=== PATIENT | male | born 1950 | race Caucasian/White ===

== ENCOUNTER 2017-02-16 07:48 | Emergency (ER) | payer MEDICARE, OTHER ==
[~2017-02-16] VITALS: Ht 182.9 cm; Wt 112.0 kg
--- NOTE | ~2017-02-16 | CT52 ---
[facility] A Service of [facility] RADIOLOGY TEXT RESULTS PATIENT: MARILY KAISER LOCATION: [facility] : 50 UNIT #: [id number] AGE: [address]: Katie Barrow MD SEX: M ORDER DR: [id number] [place] [id number] [facility]. [place], [place] [address] [id number] E MR#: [id number] #: [id number] NAME: MARILY KAISER : 1950 SEX: M STUDY DATE/TIME: 02/16/2017 8:50 UNIT: [facility] ROOM: STUDY DESCRIPTION: CT Cervical Spine Wo Cont Attending Physician: Katie Barrow M.D. Ordering Physician: Katie Barrow M.D. Primary Care Physician: Elisha Robbins M.D. MEDICAL IMAGING REPORT This report is preliminary unless electronic signature is present EXAM CT scan of the cervical spine without contrast INDICATION Fall today at custodial with scalp hematoma and neck pain since fall. TECHNIQUE Axial 2 mm images were obtained through the cervical spine. Sagittal and coronal reconstructions were generated. This CT examination was performed with one or more of the following radiation dose reduction techniques: automatic exposure control, adjustment of mA and/or kV according to patient size, and iterative reconstruction. FINDINGS The alignment is normal. There are marked facet degenerative changes, particularly on the right at L3-4 and L4-5. There is no fracture or subluxation. IMPRESSION Degenerative changes in the upper cervical spine. No evidence of acute injury. Dictated by... Jair Eaton M.D. THIS IS AN ELECTRONICALLY VERIFIED REPORT Jair Eaton M.D. at 02/16/2017 1:25 PM MILI/kathy [facility] A Service [facility] RADIOLOGY TEXT RESULTS PATIENT: MARILY KAISER LOCATION: [facility] : 50 UNIT #: [id number] AGE: [address]: Katie Barrow MD SEX: M ORDER DR: TD: 02/16/2017 09:46 JOB #: [id number] MEDICAL IMAGING REPORT Page 1 of 1 COPY
--- NOTE | ~2017-02-16 | CT71 ---
[facility] A Service of [facility] RADIOLOGY TEXT RESULTS PATIENT: MARILY KAISER LOCATION: [facility] : 50 UNIT #: [id number] AGE: [address]: Katie Barrow MD SEX: M ORDER DR: [id number] [facility] [address] [place], [place] [address] [id number] E MR#: [id number] Acc #: [id number] NAME: MARILY KAISER : 1950 SEX: M STUDY DATE/TIME: 02/16/2017 8:52 UNIT: [facility] ROOM: STUDY DESCRIPTION: CT Head Wo Contrast Attending Physician: Katie Barrow M.D. Ordering Physician: Katie Barrow M.D. Primary Care Physician: Elisha Robbins M.D. MEDICAL IMAGING REPORT This report is preliminary unless electronic signature is present EXAM CT head HISTORY Fell today at senior care; scalp hematoma, left frontal hematoma, left frontal pain, neck pain times today. FINDINGS CT head performed skull base through vertex without intravenous contrast. Study degraded by motion artifact despite repetition of some images. This CT exam was performed with one or more of the following radiation dose reduction techniques: Automatic exposure control, adjustment of mA and/or kV according to patient size, and iterative reconstruction. Comparison 06/22/2016. The brainstem shows no gross acute abnormality. The cerebellum and cerebral hemispheres show overall preservation of mejia matter-white matter differentiation without clear indication of acute intracranial hemorrhage or acute cortical ischemia. Subtle areas of hemorrhage or acute ischemia could be obscured by motion/streak artifact. The midline structures are nondisplaced and the basal ganglia are intact. The ventricles, cisterns and sulci show mild generalized enlargement consistent with mild generalized atrophy. There is no intra- or extraaxial mass effect or abnormal intracranial fluid collection. The intraorbital soft tissues are unremarkable. Cutaneous irregularity anterior right paracentral superficial nasal soft tissues. Chronicity unclear. Correlate with any acute small laceration to this region. Old, healed left nasal bone fracture. No acute appearing fracture. Mucosal thickening bilateral mastoid air cells. Similar appearance on prior study. Near-complete opacification of the right maxillary sinus. Mucosal thickening in ethmoid air cells. Cavernous carotid arterial calcifications. Soft tissue swelling left frontal scalp measuring about 3.1 cm in diameter by about 7 mm in thickness. Soft tissue swelling in the left temporal scalp STS. [facility] A Service of [facility] & [facility] RADIOLOGY TEXT RESULTS PATIENT: MARILY KAISER LOCATION: [facility] : 50 UNIT #: [id number] AGE: [address]: PushpaSeptember Carlos DAVID SEX: M ORDER DR: measuring about 5 cm in diameter by 9 mm in thickness. There is some milder soft tissue swelling in the left posterior parietal scalp. No soft tissue defect, subcutaneous air or radiodense foreign body. IMPRESSION 1. No acute abnormality is seen in the brain. Study significantly degraded by motion artifact, despite repetition of images. 2. Chronic changes in brain include mild generalized atrophy, vascular calcifications. 3. No fracture. 4. Areas of soft tissue swelling/contusion left frontal scalp measuring about 3.1 cm x 7 mm and left temporal scalp measuring about 5 cm x 9 mm. Milder posterior superior parietal soft tissue scalp swelling. No soft tissue defect. 5. Old, healed left nasal bone fracture. 6. Cutaneous irregularity along the right paracentral aspect of the superficial nasal soft tissues. Chronicity unclear. Please correlate with any acute laceration at this location. 7. Near-complete opacification of the right maxillary sinus. 8. Mucosal thickening in mastoid air cells bilaterally similar to June 2016. Correlate with any clinical signs or symptoms of mastoid inflammation. Dictated by... González Choi M.D. THIS IS AN ELECTRONICALLY VERIFIED REPORT González Choi M.D. at 02/20/2017 8:01 AM ALFREDITO/barbara TD: 02/16/2017 10:13 JOB #: [id number] MEDICAL IMAGING REPORT Page 1 of 1 COPY
--- NOTE | ~2017-02-16 | CR206 ---
[facility] A Service of [facility] RADIOLOGY TEXT RESULTS PATIENT: MARILY KAISER LOCATION: [facility] : 50 UNIT #: [id number] AGE: [address]: Katie Barrow MD SEX: M ORDER DR: [id number] [facility] [address] [place], [place] [address] [id number] E MR#: [id number] Acc #: [id number] NAME: MARILY KAISER : 1950 SEX: M STUDY DATE/TIME: 02/16/2017 8:13 UNIT: [facility] ROOM: STUDY DESCRIPTION: CR Pelvis 1 or 2 Views Attending Physician: Katie Barrow M.D. Ordering Physician: Katie Barrow M.D. Primary Care Physician: Elisha Robbins M.D. MEDICAL IMAGING REPORT This report is preliminary unless electronic signature is present EXAM Pelvis, 02/16/2017 HISTORY Unable to follow instructions, difficult to move, unable give history, short of air, hip pain 1 day. Fall. FINDINGS AP radiographs of the pelvis are presented. A AP radiograph of the femur is included. The study is somewhat limited by patient's large body habitus. Clothing and external monitoring equipment artifact overlie relevant anatomy. The lower lumbar spine shows degenerative change but no gross acute abnormality. The bony ring of pelvis appears intact. The visualized right femur is intact with mild degenerative change in the right hip. Patient is status post left femoral neck fracture with subsequent open reduction internal fixation with long intramedullary gama, distal transverse fixation screw and dynamic screw in the left femoral head and neck. 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 This is unchanged from a CT examination dated 05/19/2016. Correlate with patient's clinical history. There is no compelling evidence of acute fracture. The orthopedic hardware itself appears radiographically intact. The periarticular soft tissues show no definite acute abnormality. The visualized bowel gas pattern is within normal limits. Dictated by... González Choi M.D. THIS IS AN ELECTRONICALLY VERIFIED REPORT González Choi M.D. at 02/20/2017 8:01 AM ALFREDITO/tiara TD: 02/16/2017 09:32 JOB #: [id number] [facility] A Service of [facility] & [facility] RADIOLOGY TEXT RESULTS PATIENT: MARILY KAISER LOCATION: [facility] : 50 UNIT #: [id number] AGE: [address]: Katie Barrow MD SEX: M ORDER DR: MEDICAL IMAGING REPORT Page 1 of 1 COPY
--- NOTE | ~2017-02-16 | CR72 ---
[facility] A Service of [facility] RADIOLOGY TEXT RESULTS PATIENT: MARILY KAISER LOCATION: [facility] : 50 UNIT #: [id number] AGE: [address]: Katie Barrow MD SEX: M ORDER DR: [id number] [facility] [address] [place], [place] [address] [id number] P MR#: [id number] Acc #: [id number] NAME: MARILY KAISER : 1950 SEX: M STUDY DATE/TIME: 02/16/2017 8:10 UNIT: [facility] ROOM: STUDY DESCRIPTION: CR Chest Single View Portable Attending Physician: Katie Barrow M.D. Ordering Physician: Katie Barrow M.D. Primary Care Physician: Elisha Robbins M.D. MEDICAL IMAGING REPORT This report is preliminary unless electronic signature is present EXAM Portable chest x-ray, 02/16/2017 HISTORY Fall. Dementia. COPD. FINDINGS AP radiograph of the chest is presented. Comparison 06/23/2016. The patient's chin overlies the lung apices and obscures some detail. No acute bony abnormality is suggested. Heart normal in size. Chronic elevation right hemidiaphragm. Stable. Some minimal patchy and linear densities at the bilateral lung bases favored to be atelectatic in nature. Basilar pneumonitis not entirely excluded but felt less likely. There is no dense air space disease, pleural effusion or pneumothorax. No suspicious nodule. Dictated by... González Choi M.D. THIS IS AN ELECTRONICALLY VERIFIED REPORT González Choi M.D. at 02/20/2017 8:01 AM ALFREDITO/tiara TD: 02/16/2017 09:13 JOB #: [id number] MEDICAL IMAGING REPORT Page 1 of 1 COPY
[~2017-02-16 07:48] MED LIST: ACETAMINOOPHEN-1 TAB PO; ACETAMINOPHEN PO; ACETAMINOPHEN500 M2 PO; ADVAIR; ADVAIR 250-501 EAC1 IH; ALBUTEROL0.83 MG/ML IH; ALBUTEROL17 GM INH; ALBUTEROL17 GM NEB; AMBIEN PO; ARTANE PO; ASPIRIN81 MG PO; ATIVAN PO; ATIVAN0.5 M1 PO; ATIVAN0.5 MG PO; AUGMENTIN PO; AUGMENTIN875 M1 PO; BENZTROPINE MESY2 MG PO; COGENTIN1 M1 PO; COLACE PO; COMBIVENT MININEB INH; DARVOCET-N 1001 TAB PO; FLEXERIL PO; FLEXERIL10 MG PO; FLOMAX0.4 M1 PO; FLORANEX T1 TAB.CHE3 PO; FUROSEMIDE40 MG PO; GABAPENTIN300 MG PO; GABAPENTIN600 MG PO; GABAPENTIN800 MG PO; HALDOL PO; HUMIBID DM1 CAP.SR . PO; HUMIBID L.1 TAB.SR . PO; HUMIBID-LA600 MG PO; IPRAT-ALBUT 0.5-3 ML INH; K-DUR20 ME2 PO; KCL PO; KEFLEX PO; LASIX PO; LASIX20 MG PO; LEVAQUIN PO; LEVOTHYROXINE25 MCG PO; LOPRESSOR PO; LORATADINE PO; LORTAB 7.5-3251 EACH PO; MAPAP500 MG PO; MELATONIN10 M1 PO; METOPROLOL TAR25 MG PO; MUCINEX D ER T1 EAC1 PO; NEURONTIN PO; NEURONTIN600 MG PO; OMEPRAZOLE20 M2 PO; ORUDIS75 M1 DOB; OXYGEN INH; PERCOCET5/325 PO; PERFOROMIS20 MCG/2 M IH; POTASSIUM CHLO20 ME1 PO; PREDNISONE PO; PREDNISONE10 MG PO; PREDNISONE2.5 MG PO; PRILOSEC PO; PRIMIDONE250 MG PO; PROAIR; PROVENTIL INH0.5 ML HHN; PULMICORT0.5 MG/2 M IH; SAPHRIS5 MG SL; SEROQUEL PO; SEROQUEL XR200 MG PO; SPIRIVA18 MCG INH; STOOL SOFTENER250 MG PO; SYMBICORT INH; SYNTHROID PO; TESSALON200 MG PO; TRAMADOL HCL50 M2 PO; TRIHEXYPHENIDYL2 MG PO; ULTRAM PO; VIBRAMYCIN100 M1 PO; VIT B-12 PO; VITAL-D RX TABL1 TAB PO; VITAMIN B-121000 MCG PO; VITAMIN D31000 UNI1 PO; ZYLOPRIM PO; ZYLOPRIM100 MG PO
[2017-02-16 09:23] LABS: BASOPHIL% 0.4 % (0-2.5); EOSINOPHIL# 0.2 X10e3 (0-0.7); HEMATOCRIT 40.4 % (38.0-50.0); HEMOGLOBIN 13.7 gm/dL (13.0-16.0); LYMPHOCYTE# 1.3 X10e3 (1.0-3.5); LYMPHOCYTE% 16.1 % (17.0-45.0); MEAN CELL VOLUME 94.8 FL (83-96); MEAN CORPUSCULAR HGB CONC 33.8 g/dL (30-36); MONOCYTE# 1.2 X10e3 (0-1.0); MONOCYTE% 15.5 % (3.0-12.0); NEUTROPHIL# 5.3 X10e3 (1.5-7.1); PLATELET COUNT 170 X10e3 (140-420); RED BLOOD COUNT 4.27 X10e (3.90-5.60); RED CELL DISTRIBUTION WIDTH 16.3 % (11.0-15.5)
[2017-02-16 09:24] LABS: DIFF IND NO
[2017-02-16 09:51] LABS: PARTIAL THROMBOPLASTIN TIME 29.5 SECONDS (23.5-31.3); PROTHROMBIN TIME (PATIENT) 10.8 SECONDS (10.0-11.7)
[2017-02-16 09:52] LABS: CALCIUM SERUM 8.3 mg/dL (8.4-10.2); CREATININE SERUM 0.7 mg/dL (0.6-1.4); GLOM FILT RATE Estimated 98.4 mL/min (>60); POTASSIUM 3.5 mmol/L (3.5-5.1)
== END 2017-02-16 11:11 | disposition home or self-care (01) ==
LOC: CED 07:48
PROVIDERS: Student in an Organized Health Care Education/Training Program
DX: S00.83XA Contusion of other part of head, initial encounter (principal); I50.9 Heart failure, unspecified; J44.9 Chronic obstructive pulmonary disease, unspecified; Z79.82 Long term (current) use of aspirin; Z79.899 Other long term (current) drug therapy; W19.XXXA Unspecified fall, initial encounter; Y92.129 Unspecified place in nursing home as the place of occurrence of the external cause
CPT/HCPCS: 36415; 70450; 71010; 72125; 72170; 80048; 85025; 85610; 85730; 99284

== ENCOUNTER 2017-02-27 04:46 | Inpatient (IN) | payer MEDICARE, OTHER ==
--- NOTE | ~2017-02-27 | CR72 ---
[facility] A Service of [facility] & [facility] RADIOLOGY TEXT RESULTS PATIENT: MARILY KAISER LOCATION: [place] [address] : 50 UNIT #: [id number] AGE: [address]: Leslie Hendricks MD SEX: M ORDER DR: [id number] [facility] [address] [place], [place] [address] [id number] I MR#: [id number] Acc #: [id number] NAME: MARILY KAISER : 1950 SEX: M STUDY DATE/TIME: 02/27/2017 UNIT: [facility] ROOM: [facility] STUDY DESCRIPTION: CR Chest Single View Portable Attending Physician: Leslie Hendricks M.D. Ordering Physician: González Canales M.D. Primary Care Physician: Elisha Robbins M.D. MEDICAL IMAGING REPORT This report is preliminary unless electronic signature is present PXAM portable chest 02/27 05:09 INDICATIONS Shortness of air. Patient found unresponsive at group home this morning. FINDINGS AP portable chest is compared with 02/16/2017. ET tube is in the mid trachea in good position. There is atelectasis in both lung bases. There is emphysema. There is no pneumothorax. IMPRESSION Well-positioned ET tube. Emphysema with bibasilar atelectasis. No pneumothorax. Dictated by... Benny Gaines Jr., M.D. THIS IS AN ELECTRONICALLY VERIFIED REPORT Benny Gaines Jr., M.D. at 02/27/2017 9:21 PM ANISHA/chalo TD: 02/27/2017 14:59 JOB #: [id number] MEDICAL IMAGING REPORT Page 1 of 1 COPY
--- NOTE | ~2017-02-27 | CR72 ---
[facility] A Service of [facility] & [facility] RADIOLOGY TEXT RESULTS PATIENT: MARILY KAISER [address]ATION: [address] : [birth year] UNIT #: [id number] AGE: [address]: Soo Magaña MD SEX: M ORDER DR: [id number] [facility] [address] [place], [place] [address] [id number] I MR#: [id number] Acc #: [id number] NAME: MARILY KAISER : 1950 SEX: M STUDY DATE/TIME: 02/27/2017 14:40 UNIT: [facility] ROOM: [facility] STUDY DESCRIPTION: CR Chest Single View Portable Attending Physician: Leslie Hendricks M.D. Ordering Physician: Geoffrey Olson M.D. Primary Care Physician: Elisha Robbins M.D. MEDICAL IMAGING REPORT This report is preliminary unless electronic signature is present EXAM AP portable chest DATE: 02/27/2017 at 14:40 HISTORY Dobbhoff placement. Intubated. Additional history of COPD, congestive heart failure, previous myocardial infarction COMPARISON AP portable chest 02/27/2017 at 08:56. FINDINGS Dobbhoff tube radiopaque tip projects over the lower mediastinum presumably within the lower thoracic esophagus. ET tube remains satisfactorily positioned in the mid-thoracic trachea, with the tip about 4.5 cm above the amy. Right IJ central line extends to the [id number] SVC level. There is band-like opacity within the lung bases thought to represent changes of atelectasis, similar to prior. Upper lung zones appear clear. Bilateral costophrenic angles not included in the field of view. No visible pneumothorax. IMPRESSION 1. Dobbhoff tube radiopaque tip projects over the region of the lower thoracic esophagus. 2. Right IJ central line, ET tube appear unchanged. 3. Bibasilar band-like densities favored to represent atelectasis unchanged from earlier today. Dictated by... Alejandra Cruz M.D. THIS IS AN ELECTRONICALLY VERIFIED REPORT [facility] A Service of [facility] & [facility] RADIOLOGY TEXT RESULTS PATIENT: MARILY KAISER [address]ATION: [address] : [birth year] UNIT #: [id number] AGE: [address]: Soo Magaña MD SEX: M ORDER DR: Alejandra Cruz M.D. at 03/02/2017 8:34 AM LINA/jamal TD: 02/28/2017 04:47 JOB #: [id number] MEDICAL IMAGING REPORT Page 1 of 1 COPY
--- NOTE | ~2017-02-27 | US84 ---
[id number] [facility] [address] [place], [place] [address] [id number] I MR#: [id number] Acc #: [id number] NAME: MARILY KAISER : 1950 SEX: M STUDY DATE/TIME: 02/27/2017 21:09 UNIT: [facility] ROOM: [facility] STUDY DESCRIPTION: US LE Veins Complete Isiah Stdy Attending Physician: Soo Magaña M.D. Ordering Physician: Geoffrey Olson M.D. Primary Care Physician: Elisha Robbins M.D. MEDICAL IMAGING REPORT This report is preliminary unless electronic signature is present EXAM Bilateral lower extremity venous ultrasound HISTORY Lower extremity edema for 1 day. TECHNIQUE Venous ultrasound examination of both lower extremities was performed using grayscale, spectral Doppler and color flow Doppler imaging. FINDINGS The examination is negative. There is no evidence of deep venous thrombus from the groin to the lower calf bilaterally. Visualized greater saphenous veins are also patent. IMPRESSION Negative examination. No evidence of bilateral lower extremity deep venous thrombosis. Dictated by... Grady Aj M.D. THIS IS AN ELECTRONICALLY VERIFIED REPORT Grady Aj M.D. at 02/28/2017 11:51 PM Reji TD: 02/28/2017 11:32 JOB #: [id number] MEDICAL IMAGING REPORT Page 1 of 1 COPY
--- NOTE | ~2017-02-27 | CO ---
Unit #: [id number] #: [id number] Patient: MARILY KAISER [id number] [address] [place], [place] [address] [id number] I MR#: [id number] NAME: MARILY KAISER ROOM: [facility] Age: 66 Sex: M Admission Date: 02/27/2017 : 1950 Attending Physician: Leslie Hendricks M.D. Primary Care Physician: Elisha Robbins M.D. Consultation Date: 02/27/2017 CONSULTATION REPORT REASON FOR CONSULTATION Respiratory failure. HISTORY OF PRESENT ILLNESS History is gathered from the EHR and chart. The patient is intubated cannot add to the history. EMS was called and he was "found down." He ultimately was intubated. Unfortunately, no other history can be obtained. He apparently was found down by the nursing staff as he resides at a fpc. PAST MEDICAL HISTORY Remarkable for schizophrenia, mild mental retardation, COPD, chronic respiratory failure, diastolic heart failure, peripheral neuropathy, hypertension, chronic back pain, gastroesophageal reflux, gout. MEDICATIONS According to the EHR are Synthroid, metolazone, Flomax, Zestril, aspirin, Plavix, Zyloprim, Dilantin, Lasix, a variety of nebulized bronchodilators, Saphris, Neurontin, Cogentin, metoprolol, Zocor, Desyrel, Zantac, Seroquel, Ultram, and lorazepam. ALLERGIES No known medical allergies. SOCIAL HISTORY Lives at a fpc. Does not smoke or drink. FAMILY HISTORY Unobtainable. REVIEW OF SYSTEMS Unobtainable. PHYSICAL EXAMINATION GENERAL: Reveals a patient, who is orally intubated, sedated. VITAL SIGNS: Afebrile, pulse 89, respiratory rate is 20, blood pressure 114/72, he is 6 feet tall, 242, BMI is 33. HEENT: Pupils are equal, round, and reactive to light. Sclerae anicteric. Head, atraumatic. NECK: Supple. No supraclavicular or cervical adenopathy appreciated. CHEST: Equal breath sounds, clear, short expiratory phase. Ventilator loops revealed no evidence of airflow obstruction. CARDIAC: Reveals regular rate and rhythm. No pathologic murmur, rub, or gallop. Unit #: [id number] #: [id number] Patient: MARILY KAISER ABDOMEN: Soft and nontender. No hepatomegaly or rebound. EXTREMITIES: Reveal no clubbing or cyanosis. There is massive edema. No calf tenderness. SKIN: Has a variety of excoriations, delayed capillary blush, it is cool. No diaphoresis. NEUROLOGICALLY: Deeply sedated, cannot cooperate with the full exam. DIAGNOSTIC STUDIES LABORATORY RESULTS: Arterial blood gas; pH is 7.27, pCO2 of 85, PO2 of 481. Repeat pH is 7.36, pCO2 of 67, PO2 of 189 on assist control of 20, tidal volume is 600, 60%, 5 of PEEP. BUN 30, creatinine is 1.2, potassium 3.4. BNP has not been checked. Lactic acid less than 1. INR normal. Initial cardiac enzymes negative. White blood cell count 13, hemoglobin 14.3, and platelet count 191. Urinalysis unremarkable. Blood cultures performed and are pending. No sputum has been collected, but was grown MSSA and strep pneumococcus in the past. IMAGING STUDIES: Chest x-ray, fairly unremarkable. Could have some linear atelectasis versus infiltrate at the bases. CARDIOVASCULAR STUDIES: EKG, sinus rhythm, no definite acute ischemic changes. IMPRESSION 1. Respiratory failure, acute on chronic. At this point, the etiology of his respiratory failure is somewhat obscure. Consider over medication, occult pneumonia, etc. At this point, there was no evidence of significant airflow obstruction. 2. Chronic obstructive pulmonary disease without bronchospasm. 3. Diastolic heart failure. 4. Schizophrenia, etc. PLAN Mechanical ventilatory support. Continue antibiotics for now. Check tox screen. Check procalcitonin and BNP. Rule out PE and DVT. Panculture and adjust antibiotics as appropriate. Thank you very much for allowing me to participate in the care of Mr. Vergara. Dictated by... Geoffrey Olson M.D. JUANITO/anthony TD: 02/27/2017 14:45 JOB #: [id number] CC: Elisha Robbins M.D. Unit #: [id number] #: [id number] Patient: MARILY KAISER CONSULTATION REPORT Page 1 of 1 X Geoffrey Olson MD CONSULTATION REPORT
--- NOTE | ~2017-02-27 | HP ---
Unit #: [id number] #: [id number] Patient: MARILY KAISER [id number] [address] [place], [place] [address] [id number] I MR#: [id number] NAME: MARILY KAISER ROOM: 91270 Age: 66 Sex: M Admission Date: 02/27/2017 : 1950 Attending Physician: Leslie Hendricks M.D. Primary Care Physician: Elisha Robbins M.D. HISTORY AND PHYSICAL CHIEF COMPLAINT Found unresponsive on floor. HPI The patient is a 66-year-old male with past medical history of chronic respiratory failure, COPD, diastolic dysfunction, nonsustained ventricular tachycardia, schizophrenia, mental retardation, neuropathy, BPH, chronic pain, hearing impairment, GERD, gout, who presented to the emergency department from the longterm for evaluation of the above. History is obtained from chart review and discussion with ER staff due to the patient currently being intubated and sedated. The patient was reportedly found down by longterm staff. It is unclear when he was last normal. Upon EMS arrival, he was in the bed, lethargic and then reportedly combative. He was given etomidate and intubated prior to arrival. Upon arrival in the emergency department, initial temperature was 96.1 rectally, pulse 84, blood pressure 81/61. CT of the head shows nothing acute. Chest x-ray shows nothing acute. Initial lactic acid was 2.1. He was given 1 L of normal saline as well as vancomycin and Zosyn. He also was started on versed drip for sedation and Levophed drip due to hypotension. A central line has been placed. He is being admitted to [facility] for evaluation and further treatment. PAST MEDICAL HISTORY 1. Admission to [facility] May 29 through the 2015 for fever. Per the discharge summary, no source of infection was identified. 2. Schizophrenia. 3. Mild mental retardation. 4. COPD. The patient has seen chest medicine in the past. 5. Chronic respiratory failure, on home oxygen. 6. Diastolic dysfunction. The patient had an echocardiogram in October of 2014 that showed an ejection fraction of 50% with dilated right ventricle. 7. Nonsustained ventricular tachycardia. 8. Peripheral neuropathy. 9. BPH. 10. Hypertension. 11. Chronic back pain. 12. Hearing impairment. 13. GERD. 14. Gout. Unit #: [id number] #: [id number] Patient: MARILY KAISER PAST SURGICAL HISTORY 1. Cardiac catheterization in 2002 showed luminal irregularities of the LAD. 2. Appendectomy. 3. Umbilical hernia repair. 4. Incision and drainage of left wrist abscess. SOCIAL HISTORY The patient is at a longterm. He is a former smoker. There is no alcohol. His code status is a Full Code. FAMILY HISTORY Notable for lung cancer. ALLERGIES No known allergies. HOME MEDICATIONS 1. Synthroid. 2. Metolazone. 3. Flomax. 4. Zestril. 5. Aspirin. 6. Clopidogrel. 7. Zyloprim. 8. Vitamin D. 9. Vitamin B12. 10. Phenytoin. 11. Ipratropium. 12. Albuterol. 13. Furosemide. 14. Pulmicort. 15. Potassium. 16. Saphris. 17. Neurontin. 18. Cogentin. 19. Metoprolol. 20. Stool softener. 21. Zocor. 22. Desyrel. 23. Zantac. 24. Seroquel. 25. Ultram. 26. Albuterol. 27. Tylenol. 28. Lorazepam. Home medications will need to be reviewed and verified. REVIEW OF SYSTEMS A complete review of systems is unobtainable form the patient due to sedation and altered mental status. DIAGNOSTIC TESTS CARDIOVASCULAR: EKG shows normal sinus rhythm with rate of 91 beats per minute. Unit #: [id number] #: [id number] Patient: MARILY KAISER IMAGING: Chest x-ray shows nothing acute. CT of the head shows nothing acute. LABORATORY: Arterial blood gas shows pH of 7.272, pCO2 of 85, pO2 of 481 on assist control with an FIO2 of 100%. Troponin is less than 0.05. Complete blood count notable for white blood cell count of 13.1, lactic acid 2.1, ammonia is 32. Comprehensive metabolic panel notable for sodium of 132, potassium is 3.4, chloride 88, CO2 35. BUN and creatinine 30 and 1.2 respectively. Calcium is 8.1, albumin 3.4, alkaline phosphatase 94. Dilantin level is less than 2.5. Tylenol, salicylate and alcohol levels are negative. INR is 1. Urinalysis is essentially normal. CPK is 41. PHYSICAL EXAMINATION VITAL SIGNS: Temperature is 96.1 rectally, pulse 84, respirations 16, blood pressure 81/61, most recently 101/77. GENERAL: The patient is a male who is intubated and sedated. HEENT: The head is atraumatic. Mucous membranes are moist. NECK: Supple. Trachea is midline. CARDIOVASCULAR: Regular rate and rhythm. LUNGS: Clear to auscultation bilaterally. ABDOMEN: Soft. Bowel sounds are present in all 4 quadrants. EXTREMITIES: There is 2-3+ pitting edema of bilateral lower extremities. NEURO: The patient is sedated on versed drip. He was initially moving all extremities per my discussion with ER staff. PSYCH: Unable to assess. SKIN: Demonstrates scattered bruises of the upper extremities in various stages of healing. ASSESSMENT The patient is a 66-year-old male with: 1. Altered mental status. 2. Acute on chronic respiratory failure, hypoxic and hypercapnic. 3. Possible septic shock. The patient received 1 L of normal saline in the emergency department. He is currently on Levophed drip with most recent blood pressure 107/83. 4. Possible healthcare-associated pneumonia. Chest x-ray is clear. He received vancomycin and Zosyn in the emergency department. 5. Hypokalemia with potassium of 3.4. 6. COPD. 7. Diastolic dysfunction with ejection fraction of 50% noted on echocardiogram October 23, 2014. 8. History of nonsustained ventricular tachycardia. 9. Schizophrenia. 10. Mild mental retardation. 11. Neuropathy. 12. BPH. Unit #: [id number] #: [id number] Patient: MARILY KAISER 13. Chronic back pain. 14. Hearing impaired. 15. GERD. 16. Gout. 17. Former smoker. PLAN 1. Admit to ICU. 2. NPO. 3. Versed drip per sedation protocol. 4. Levophed drip for MAP greater than 65. 5. Blood cultures x2. 6. Sputum culture and sensitivity. 7. Procalcitonin level. 8. Streptococcal and legionella urine antigens. 9. Vancomycin IV and Zosyn IV pending further workup. 10. Duo-Nebs q.4 hours. 11. Sepsis protocol. 12. Consult chest medicine regarding ICU admission and vent management. 13. Serial cardiac enzymes. 14. TSH, B12 and folate. 15. Check magnesium level. 16. Replace potassium. 17. Repeat labs in the morning. 18. Repeat chest x-ray in the morning. 19. SCDs for DVT prophylaxis. 20. Protonix for GI prophylaxis since the patient will be in the ICU. 32 minutes critical care time spent in the care of this patient (11 a.m. to 11:32 a.m.). Dictated by Leslie Hendricks M.D. DEVI/denia TD: 02/27/2017 12:45 JOB #: [id number] HISTORY AND PHYSICAL Page 1 of 1 X Leslie Hendricks MD X HISTORY AND PHYSICAL
--- NOTE | ~2017-02-27 | CT16 ---
[facility] A Service of [facility] & [facility] RADIOLOGY TEXT RESULTS PATIENT: MARILY KAISER LOCATION: [facility] 579-01 : 50 UNIT #: [id number] AGE: [address]: Soo Magaña MD SEX: M ORDER DR: [id number] [facility] [address] [facility]. [place], [place] [address] [id number] I MR#: [id number] #: [id number] NAME: MARILY KAISER : 1950 SEX: M STUDY DATE/TIME: 02/27/2017 20:35 UNIT: [facility] ROOM: [facility] STUDY DESCRIPTION: CT Angio Chest for PE Attending Physician: Soo Magaña M.D. Ordering Physician: Geoffrey Olson M.D. Primary Care Physician: Elisha Robbins M.D. MEDICAL IMAGING REPORT This report is preliminary unless electronic signature is present EXAM CT angiography of the chest with IV contrast, PE protocol COMPARISON CT chest dated May 13, 2016, May 08, 2016, April 16, 2015, December 27, 2014. INDICATION 66-year-old male found down on the floor at shelter today. Acute respiratory distress and respiratory failure requiring intubation. Ventilatory support today. Dyspnea. TECHNIQUE Axial CT imaging of the chest was performed after IV administration of 100 mg Isovue-370. Coronal MIPs and sagittal reformats were constructed. This CT exam was performed with one or more of the following radiation dose reduction techniques: automatic exposure control, adjustment of mA and/or kV according to patient size, and iterative reconstruction. FINDINGS There is adequate position of endotracheal tube. Feeding tube tip terminates in the gastric fundus. There is questionable fracture of the ninth left lateral rib that, if real, is nondisplaced. This is incompletely imaged. Right internal jugular catheter terminates in the SVC. Mild bilateral gynecomastia. Normal caliber of the thoracic aorta. The main pulmonary artery and ascending aorta are limited in evaluation due to pulsation artifact. There is actually mild dilatation of the main pulmonary artery measuring up to 3.2 cm, a finding that may reflect pulmonary arterial hypertension. There are grossly stable prominent mediastinal lymph nodes, the largest of which measures up to 9 mm short axis. These are likely reactive. No evidence of pulmonary embolus. There is enhancing dependent attenuation in the right lower lobe and, to a STS. [facility] A Service of [facility] RADIOLOGY TEXT RESULTS PATIENT: MARILY KAISER LOCATION: [facility] 579-01 : 50 UNIT #: [id number] AGE: [address]: Soo Magaña MD SEX: M ORDER DR: lesser extent, in the left lower lobe suggesting atelectasis. There is trace right pleural effusion. There is volume loss in the right middle lobe with plate-like enhancing attenuation, most consistent with atelectasis. No evidence of pneumothorax. Mild to moderate centrilobular paraseptal emphysema. Detailed evaluation of the lungs is limited in part by motion. Mild cardiomegaly. There is fluid distention of the gallbladder which is otherwise unremarkable. There is marked fatty atrophy of the pancreas. Large colonic stool burden within the transverse colon. In the posterior right kidney, there is an exophytic hypoattenuating lesion measuring 1.4 cm that appears to have been present on May 19, 2016, most consistent with either a cyst or angiomyolipoma at that time, given the negative average internal Hounsfield units. Current exam is limited by streak artifact from the patient's arms at the side, and apparent increased attenuation in this lesion on today's exam is most likely artifactual. Lesion is stable in size from May 19, 2016. As compared to CT of January 16, 2015, there appears to be stable height loss of the T11 and T12 vertebral bodies. No convincing evidence of acute fracture, although evaluation of bones again is limited by streak artifact from the patient's arms by his side. IMPRESSION 1. No evidence of pulmonary embolus. 2. Trace right pleural effusion with dependent enhancing attenuation in both lower lobes favoring atelectasis. Correlation to exclude signs of pneumonia recommended. There is also plate-like atelectasis in the right middle lobe. There is a background of emphysema, and there is grossly stable mild mediastinal adenopathy, as compared January 16, 2017, likely reactive. 3. Possible nondisplaced single left lateral rib fracture, as described in the body of the report. This is not imaged in entirety, and the finding could reflect an artifact. 4. Fluid distension of the gallbladder without secondary findings of acute cholecystitis. 5. Adequate position of endotracheal tube. Feeding tube tip terminates in the gastric fundus. 6. Severe fatty replacement of the pancreas. 7. 1.4-cm lesion in the right kidney which is stable from most recent comparison CT abdomen and pelvis dated May 19, 2016. This has not changed in size, and in 2016, without IV contrast and with adequate technique, this was most consistent with a cyst or possibly a benign angiomyolipoma. Current apparent increased density is favored to be secondary to streak artifact from the patient's arms by his side. Findings would seem most in keeping with a benign right renal lesion. Consider CT followup as clinically indicated. [facility] A Service of [facility] RADIOLOGY TEXT RESULTS PATIENT: MARILY KAISER LOCATION: [place] [address] : 50 UNIT #: [id number] AGE: [address]: Soo Magaña MD SEX: M ORDER DR: Dictated by... Ford Powell M.D. THIS IS AN ELECTRONICALLY VERIFIED REPORT Ford Powell M.D. at 03/06/2017 9:45 AM Shekhar TD: 02/28/2017 10:56 JOB #: [id number] MEDICAL IMAGING REPORT Page 1 of 1 COPY
--- NOTE | ~2017-02-27 | CT71 ---
[facility] A Service of [facility] RADIOLOGY TEXT RESULTS PATIENT: MARILY KAISER LOCATION: [address]08 : 50 UNIT #: [id number] AGE: [address]: Leslie Hendricks MD SEX: M ORDER DR: [id number] [place] [id number] [facility]. [place], [place] [address] [id number] I MR#: [id number] Acc #: [id number] NAME: MARILY KAISER : 1950 SEX: M STUDY DATE/TIME: 02/27/2017 9:19 UNIT: [facility]3 ROOM: [facility] STUDY DESCRIPTION: CT Head Wo Contrast Attending Physician: Leslie Hendricks M.D. Ordering Physician: González Canales M.D. Primary Care Physician: Elisha Robbins M.D. MEDICAL IMAGING REPORT This report is preliminary unless electronic signature is present EXAM Noncontrast head CT. HISTORY Found unresponsive on floor this morning, intubated respiratory distress. History of emphysema, prior ID. COMPARISON Head CT, 02/16/2017. TECHNIQUE This CT exam was performed with one or more of the following radiation dose reduction techniques: automatic exposure control, adjustment of mA and/or kV according to patient size, and iterative reconstruction. FINDINGS Axial noncontrast imaging of the brain demonstrates no mass, mass effect or midline shift. No hemorrhage or abnormal extraaxial fluid collections. Mild atrophy. Bilateral ethmoid and right maxillary sinus disease. Calvarial soft tissues unremarkable. Resolution of the previously noted scalp hematoma. IMPRESSION 1. No acute intracranial abnormality identified. 2. Diffuse ethmoid and right maxillary sinus mucosal disease. 3. Resolution of apparent scalp contusion or hematomas when compared to head CT 02/16/2017. Dictated by... Kasandra Low M.D. THIS IS AN ELECTRONICALLY VERIFIED REPORT [facility] A Service of [facility] RADIOLOGY TEXT RESULTS PATIENT: MARILY KAISER LOCATION: [address] : 50 UNIT #: [id number] AGE: [address]: Leslie Hendricks MD SEX: M ORDER DR: Kasandra Low M.D. at 02/27/2017 5:07 PM Hoa TD: 02/27/2017 16:50 JOB #: [id number] MEDICAL IMAGING REPORT Page 1 of 1 COPY
--- NOTE | ~2017-02-27 | EKG ---
PATIENT: MARILY KAISER UNIT #: [id number] Ventricular Rate: 91 BPM Atrial Rate: 91 BPM P-R Interval: 150 ms QRS Duration: 98 ms Q-T Interval: 380 ms QTC Calculation(Bezet): 467 ms P [place]: 67 degrees Calculated R [place]: 10 degrees Calculated T [place]: 65 degrees Diagnosis Line: Normal sinus rhythm Diagnosis Line: Incomplete right bundle branch block Diagnosis Line: Septal infarct , age undetermined Diagnosis Line: Abnormal ECG Diagnosis Line: When compared with ECG of 27-FEB-2017 05:06, Diagnosis Line: (unconfirmed) Diagnosis Line: Fusion complexes are no longer Present Diagnosis Line: Confirmed by NATE CALVILLO MD ([id number]) on Diagnosis Line: 02/27/2017 2:11:21 PM INTERPRETING MD: RAJINDER DAVID
--- NOTE | ~2017-02-27 | DS ---
Unit #: [id number] #: [id number] Patient: MARILY KAISER [id number] [address] [place], [place] [address] [id number] I MR#: [id number] NAME: MARILY KAISER ROOM: 579 Age: 66 Sex: M Admission Date: 02/27/2017 : 1950 Discharge Date: 03/03/2017 Attending Physician: Soo Magaña M.D. Primary Care Physician: Elisha Robbins M.D. DISCHARGE SUMMARY CHIEF COMPLAINT Found unresponsive. HISTORY OF PRESENT ILLNESS/HOSPITAL COURSE Patient is a 66-year-old male with a past medical history of chronic respiratory failure, end stage COPD, diastolic dysfunction, seizure disorder, MRDD neuropathy, schizophrenia, and a termite technician resident of local fpc who presented after staff found him down. EMS services were called and patient was lethargic, reportedly combative. He was appropriately sedated, intubated, and subsequently transferred to [facility] for further evaluation. Patient was placed in the ICU. A consultation was placed to [facility] for evaluation as they had seen the patient in the past. He was maintained on routine medications. He was gradually weaned from a ventilator. He was placed on IV antibiotics and consideration for possible aspiration. He was transitioned out of ICU into O2 via nasal cannula. He appears to be close to baseline in regards to his overall mental status. He did undergo a CT chest, which raised the possibility of atelectasis versus pneumonia. At the time of discharge, she will ge transitioning to p.o. Augmentin for an additional ten days. His blood cultures from this hospital admission does not yield any bacterial growth. His hemoglobin A1c was 5.5%. At the time of discharge the patient's creatinine was 0.5, white count 6.7, hemoglobin 12.2. Secondary to bilateral lower extremity edema, the patient did undergo an ultrasound of the lower extremities, which was negative for acute DVT. At this point time, patient is clinically stable for discharge back to the [facility]. It seems likely he may have had a seizure , which prompted decreased mental status. FINAL DISCHARGE DIAGNOSES 1. Altered mental status, questionable etiology. 2. Acute on chronic respiratory failure, hypoxic/hypercapnic on admission, now improved. Unit #: [id number] #: [id number] Patient: MARILY KAISER 3. Initial septic shock now improved. Present on admission 4. Healthcare acquired pneumonia versus aspiration pneumonia. 5. Chronic obstructive pulmonary disease, end stage. 6. Diastolic dysfunction with previous ejection fraction 50% noted on echocardiogram 10/2014. 7. Prior history of nonsustained ventricular tachycardia. 8. Schizophrenia. 9. Mental retardation and developmental disabilities. 10. Neuropathy. 11. Benign prostatic hypertrophy. 12. Hearing impaired. 13. Gastroesophageal reflux disease. FINAL DISCHARGE MEDICATIONS 1. DuoNeb aerosol solution q.6 hours scheduled. 2. Pulmicort b.i.d. 3. Flomax 0.4 mg p.o. q.day. 4. Tylenol 500 mg p.o. q.4-6 p.r.n. 5. Risperdal 2 mg p.o. b.i.d. 6. Lopressor 25 mg p.o. b.i.d. 7. Colace 200 mg p.o. q.day. 8. Lasix 40 mg p.o. q.day. 9. Zocor 20 mg p.o. q.h.s. 10. Dilantin 100 mg p.o. q.8. 11. Allopurinol 100 mg p.o. q.day. 12. Aspirin 81 mg p.o. q.day. 13. Augmentin 875 mg p.o. b.i.d. x10 days. 14. Plavix 75 mg p.o. q.day. 15. Klor-Con 20 mEq p.o. q.day. 16. Protonix 40 mg p.o. q.day. 17. Synthroid 25 mcg p.o. q.day. 18. Vitamin B12 1,000 mcg p.o. q.day. 19. Vitamin D 1,000 units p.o. q.day. 20. Saphris 10 mg sublingual b.i.d. DISCHARGE CONDITION Stable. DISCHARGE DISPOSITION [facility] for ongoing care. Dictated by... Maria Esther Sparks TD: 03/03/2017 12:22 JOB #: [id number] Unit #: [id number] #: [id number] Patient: MARILY KAISER R DISCHARGE SUMMARY Page 1 of 1 X Soo Magaña MD X DISCHARGE SUMMARY
--- NOTE | ~2017-02-27 | CR72 ---
[facility] A Service of [facility] & [facility] RADIOLOGY TEXT RESULTS PATIENT: MAIRLY KAISER LOCATION: [place] [address] : 50 UNIT #: [id number] AGE: [address]: Soo Magaña MD SEX: M ORDER DR: [id number] [facility] [address]. [place], [place] [address] [id number] I MR#: [id number] Acc #: [id number] NAME: MARILY KAISER : 1950 SEX: M STUDY DATE/TIME: 03/02/2017 04:09 UNIT: [facility] ROOM: [facility] STUDY DESCRIPTION: CR Chest Single View Portable Attending Physician: Soo Magaña M.D. Ordering Physician: Matt Gutierrez M.D. Primary Care Physician: Elisha Robbins M.D. MEDICAL IMAGING REPORT This report is preliminary unless electronic signature is present EXAM Portable chest, 03/02 at 04:09 INDICATIONS Shortness of air and respiratory failure for 12 days. FINDINGS AP portable chest is compared with 02/28/2017. Right IJ line in the SVC. Patient has been extubated and the feeding tube has been removed. Heart size stable. There is increased elevation of the right hemidiaphragm. There is some mild infiltrate or atelectasis in both bases. There is emphysema. No pneumothorax. Dictated by... Benny Gaines Jr., M.D. THIS IS AN ELECTRONICALLY VERIFIED REPORT Benny Gaines Jr., M.D. at 03/05/2017 7:14 AM ANISHA/tiara TD: 03/02/2017 10:09 JOB #: [id number] MEDICAL IMAGING REPORT Page 1 of 1 COPY
--- NOTE | ~2017-02-27 | CR6 ---
[facility] A Service of [facility] RADIOLOGY TEXT RESULTS PATIENT: MARILY KAISER LOCATION: [address] : [birth year] UNIT #: [id number] AGE: [address]: Leslie Hendricks MD SEX: M ORDER DR: [id number] [place] [id number] [place], [place] [address] [id number] I MR#: [id number] Acc #: [id number] NAME: MARILY KAISER : 1950 SEX: M STUDY DATE/TIME: 02/27/2017 14:53 UNIT: [facility] ROOM: [facility] STUDY DESCRIPTION: CR Abdomen Portable Sng View Attending Physician: Leslie Hendricks M.D. Ordering Physician: Leslie Hendricks M.D. Primary Care Physician: Elisha Robbins M.D. MEDICAL IMAGING REPORT This report is preliminary unless electronic signature is present EXAM Portable abdomen HISTORY Dobbhoff tube placement FINDINGS Portable view of the abdomen shows tip of the Dobbhoff tube is in the left upper quadrant consistent with being in the stomach. The visible bowel gas pattern is normal. Dictated by... Jair Eaton M.D. THIS IS AN ELECTRONICALLY VERIFIED REPORT Jair Eaton M.D. at 02/28/2017 7:08 AM MILI/jamal TD: 02/28/2017 04:13 JOB #: [id number] MEDICAL IMAGING REPORT Page 1 of 1 COPY
--- NOTE | ~2017-02-27 | CR72 ---
[facility] A Service of [facility] & [facility] RADIOLOGY TEXT RESULTS PATIENT: MARILY KAISER LOCATION: [address] : 50 UNIT #: [id number] AGE: [address]: Soo Magaña MD SEX: M ORDER DR: [id number] [facility] [address] [place], [place] [address] [id number] MR#: [id number] #: [id number] NAME: MARILY KAISER : 1950 SEX: M STUDY DATE/TIME: 02/27/2017 08:56 UNIT: [facility] ROOM: [facility] STUDY DESCRIPTION: CR Chest Single View Portable Attending Physician: Leslie Hendricks M.D. Ordering Physician: Jorge Pisano M.D. Primary Care Physician: Elisha Robbins M.D. MEDICAL IMAGING REPORT This report is preliminary unless electronic signature is present EXAM Chest, portable; 02/27/2017, 0856 hours. CLINICAL HISTORY 66-year-old man with shortness of air today requiring intubation. History of CHF, myocardial infarction and COPD. COMPARISON 02/27/2017, 0509 hours. FINDINGS Portable upright chest demonstrates endotracheal tube with tip 4.4 cm above the amy. There is a right IJ catheter with tip in the mid SVC. There is no pneumothorax. There is linear density at the bases right greater than left with stable mild elevation of the right hemidiaphragm. The upper lungs are clear and there is no pneumothorax. IMPRESSION 1. Endotracheal tube is stable with tip 4.4 cm above the amy. There is a new right IJ catheter with tip in mid SVC. No pneumothorax. 2. Stable elevation of the right hemidiaphragm with linear density right greater than left lung base likely atelectasis. The upper lungs are clear and there is no effusion. Dictated by... Susan Vinson M.D. THIS IS AN ELECTRONICALLY VERIFIED REPORT Susan Vinson M.D. at 02/28/2017 9:29 AM GUILLERMINA/franko [facility] A Service of [facility] & [facility] RADIOLOGY TEXT RESULTS PATIENT: MARILY KAISER [address] [birth year] UNIT #: [id number] AGE: [address]: Soo Magaña MD SEX: M ORDER DR: TD: 02/27/2017 16:18 JOB #: [id number] MEDICAL IMAGING REPORT Page 1 of 1 COPY
--- NOTE | ~2017-02-27 | CR72 ---
[facility] A Service of [facility] & [facility] RADIOLOGY TEXT RESULTS PATIENT: MARILY KAISER LOCATION: [place] [id number] : [birth year] UNIT #: [id number] AGE: [address]: Soo Magaña MD SEX: M ORDER DR: [id number] [facility] [address] [place], [place] [address] [id number] MR#: [id number] Acc #: [id number] NAME: MARILY KAISER : 1950 SEX: M STUDY DATE/TIME: 02/28/2017 6:00 UNIT: [facility] ROOM: [facility] STUDY DESCRIPTION: CR Chest Single View Portable Attending Physician: Soo Magaña M.D. Ordering Physician: Leslie Hendricks M.D. Primary Care Physician: Elisha Robbins M.D. MEDICAL IMAGING REPORT This report is preliminary unless electronic signature is present EXAM Single view of the chest dated 02/28/17. COMPARISON Single view chest dated 02/27/17. HISTORY Shortness of air, respiratory distress for 10 days. FINDINGS Single view of the chest was obtained. Tip of the endotracheal tube is 6.6 cm from the amy. Dobbhoff tube is in place. Right IJ approach PICC line catheter tip is in the SVC. Minimal bibasilar atelectatic lung changes, particularly in the left. No significant new acute cardiopulmonary disease. Normal-sized heart. Dictated by... Tiago Khalil M.D. THIS IS AN ELECTRONICALLY VERIFIED REPORT Tiago Khalil M.D. at 03/01/2017 2:46 PM CPR/pc TD: 02/28/2017 13:02 JOB #: [id number] MEDICAL IMAGING REPORT Page 1 of 1 COPY
[2017-02-27 05:19] LABS: ARTERIAL BLOOD GAS CARBOXY HB 1.2 %sat (0.0-9.0); ARTERIAL BLOOD GAS HCO3 39.2 mmol/L; ARTERIAL BLOOD GAS MET HB 1.1 %sat (0.0-2.0); ARTERIAL BLOOD GAS pH 7.272 (7.350-7.450)
[2017-02-27 05:21] LABS: ARTERIAL BLOOD GAS ART SITE RIGHT FEMORAL; ARTERIAL BLOOD GAS DELIVERY VENT; ARTERIAL BLOOD GAS VENT MODE AC; ARTERIAL DRAW? YES
[2017-02-27 06:08] LABS: POC - CKMB 1.5 ng/mL (0.0-7.9); POC - TROPONIN <0.05 ng/mL (<=0.05)
[2017-02-27 06:48] LABS: ARTERIAL BLD GAS O2 SATURATION 98.3 % (90.0-100.0); ARTERIAL BLOOD GAS CARBOXY HB 1.2 %sat (0.0-9.0); ARTERIAL BLOOD GAS HCO3 38.3 mmol/L; ARTERIAL BLOOD GAS MET HB 0.6 %sat (0.0-2.0); ARTERIAL BLOOD GAS pH 7.363 (7.350-7.450)
[2017-02-27 06:49] LABS: ARTERIAL BLOOD GAS ALLEN TEST NORMAL; ARTERIAL BLOOD GAS ART SITE RIGHT RADIAL; ARTERIAL BLOOD GAS DELIVERY VENT; ARTERIAL BLOOD GAS PCO2 67.4 mmHg (35.0-45.0); ARTERIAL BLOOD GAS VENT MODE AC; ARTERIAL DRAW? YES
[2017-02-27 07:19] LABS: BASOPHIL% 0.3 % (0-2.5); EOSINOPHIL# 0.1 X10e3 (0-0.7); EOSINOPHIL% 0.7 % (0.0-7.0); HEMATOCRIT 43.6 % (38.0-50.0); HEMOGLOBIN 14.3 gm/dL (13.0-16.0); LYMPHOCYTE# 1.8 X10e3 (1.0-3.5); LYMPHOCYTE% 14.1 % (17.0-45.0); MEAN CELL VOLUME 96.8 FL (83-96); MEAN CORPUSCULAR HEMOGLOBIN 31.8 PG (28-34); MEAN CORPUSCULAR HGB CONC 32.8 g/dL (30-36); MEAN PLATELET VOLUME 9.8 FL (6.5-11.5); MONOCYTE# 2.4 X10e3 (0-1.0); MONOCYTE% 18.3 % (3.0-12.0); NEUTROPHIL# 8.7 X10e3 (1.5-7.1); NEUTROPHIL% 66.6 % (40-75); PLATELET COUNT 191 X10e3 (140-420); RED CELL DISTRIBUTION WIDTH 16.7 % (11.0-15.5); WHITE BLOOD COUNT 13.1 X10e3 (4.0-10.5)
[2017-02-27 07:24] LABS: DIFF IND NO
[2017-02-27 07:52] LABS: ALBUMIN SERUM 3.4 g/dL (3.5-5.0); ALKALINE PHOSPHATASE 94 U/L (32-92); ALT (SGPT) 9 U/L (10-40); AST (SGOT) 15 U/L (10-42); BILIRUBIN, DIRECT 0.1 mg/dL (0.0-0.2); BILIRUBIN,INDIRECT 0.6 mg/dL (0.0-0.9); BILIRUBIN,TOTAL 0.7 mg/dL (0.2-2.0); BLOOD UREA NITROGEN 30 mg/dL (9-23); CALCIUM SERUM 8.1 mg/dL (8.4-10.2); CARBON DIOXIDE 35 mmol/L (22-31); CHLORIDE 88 mmol/L (100-111); CREATININE SERUM 1.2 mg/dL (0.6-1.4); GLOM FILT RATE Estimated 62.7 mL/min (>60); GLUCOSE FASTING 99 mg/dL (70-110); POTASSIUM 3.4 mmol/L (3.5-5.1); SALICYLATE <4.0 mg/dL; SODIUM 132 mmol/L (135-145)
[2017-02-27 07:53] LABS: ACETAMINOPHEN <10 ug/mL; ALCOHOL BLOOD <5 mg/dL (0); DILANTIN (PHENYTOIN) <2.5 ug/mL (10.0-20.0)
[2017-02-27] MEDS ORDERED: SYNTHROID25 MCG PO (07:57)
[2017-02-27] MEDS ORDERED: METOLAZONE2.5 MG PO (07:58)
[2017-02-27] MEDS ORDERED: FLOMAX0.4 M1 PO (07:58)
[2017-02-27] MEDS ORDERED: ZESTRIL2.5 MG PO (07:59)
[2017-02-27] MEDS ORDERED: CLOPIDOGREL BIS75 MG PO (07:59)
[2017-02-27] MEDS ORDERED: BAYER CHEWABLE81 MG PO (07:59)
[2017-02-27] MEDS ORDERED: ZYLOPRIM100 MG PO (07:59)
[2017-02-27] MEDS ORDERED: VITAMIN D1000 UNIT PO (08:00)
[2017-02-27 08:01] LABS: PARTIAL THROMBOPLASTIN TIME 23.8 SECONDS (23.5-31.3); PROTHROMBIN TIME (PATIENT) 10.9 SECONDS (10.0-11.7)
[2017-02-27] MEDS ORDERED: VITAMIN B122500 MCG PO (08:03)
[2017-02-27] MEDS ORDERED: PHENYTOIN SODI100 M4 PO (08:03)
[2017-02-27] MEDS ORDERED: IPRAT-ALBUT 0.5-3 ML INH (08:04)
[2017-02-27] MEDS ORDERED: FUROSEMIDE40 MG PO (08:04)
[2017-02-27] MEDS ORDERED: PULMICORT0.5 MG/21 INH (08:05)
[2017-02-27] MEDS ORDERED: K-DUR20 ME1 PO (08:06)
[2017-02-27] MEDS ORDERED: SAPHRIS10 MG SL (08:06)
[2017-02-27] MEDS ORDERED: NEURONTIN PO (08:07)
[2017-02-27] MEDS ORDERED: COGENTIN2 MG PO (08:07)
[2017-02-27] MEDS ORDERED: METOPROLOL TAR25 MG PO (08:08)
[2017-02-27] MEDS ORDERED: STOOL SOFTENER250 MG PO (08:09)
[2017-02-27] MEDS ORDERED: ZOCOR20 MG PO (08:09)
[2017-02-27] MEDS ORDERED: DESYREL50 MG PO (08:10)
[2017-02-27] MEDS ORDERED: SEROQUEL300 M1 PO (08:11)
[2017-02-27] MEDS ORDERED: ZANTAC150 M1 PO (08:11)
[2017-02-27] MEDS ORDERED: ULTRAM PO (08:12)
[2017-02-27] MEDS ORDERED: MAPAP500 MG PO (08:13)
[2017-02-27] MEDS ORDERED: ALBUTEROL MININEB NEB (08:13)
[2017-02-27] MEDS ORDERED: ATIVAN0.5 MG PO (08:14)
[2017-02-27] MEDS ORDERED: ATROVENT NEB (08:14)
[2017-02-27 09:42] LABS: URINE SOURCE CATH
[2017-02-27 09:50] LABS: URINE APPEARANCE CLEAR; URINE BILIRUBIN NEG (NEG); URINE BLOOD NEG (NEG); URINE COLOR YELLOW; URINE GLUCOSE NEG (NEG); URINE KETONE NEG (NEG); URINE LEUKOCYTE ESTERASE NEG (NEG); URINE NITRATE NEG (NEG); URINE PROTEIN NEG (NEG); URINE SPECIFIC GRAVITY 1.012 (1.003-1.035); URINE UROBILINOGEN 0.2 MG/DL (NEG)
[2017-02-27 09:58] LABS: CULTURE INDICATED? NO
[2017-02-27 16:03] LABS: FOLATE (FOLIC ACID) 7.9 ng/mL (>5.8)
[2017-02-27 17:33] LABS: %MB 3.8 % (0.0-4.0); MB 4.6 ng/ml
[2017-02-27 18:15] LABS: AMPHETAMINE NEG (NEG); BARBITURATES NEG (NEG); BENZODIAZEPINES NEG (NEG); COCAINE NEG (NEG); MARIJUANA NEG (NEG); OPIATES NEG (NEG); TRICYCLIC ANTIDEPRESSANTS POS (NEG); U METHADONE NEG (NEG)
[2017-02-27 21:06] LABS: %MB 3.5 % (0.0-4.0); MB 4.7 ng/ml
[2017-02-28 03:33] LABS: BASOPHIL% 0.3 % (0-2.5); EOSINOPHIL# 0.1 X10e3 (0-0.7); EOSINOPHIL% 0.9 % (0.0-7.0); HEMATOCRIT 39.4 % (38.0-50.0); HEMOGLOBIN 13.1 gm/dL (13.0-16.0); LYMPHOCYTE# 0.9 X10e3 (1.0-3.5); MEAN CELL VOLUME 95.8 FL (83-96); MEAN CORPUSCULAR HEMOGLOBIN 31.8 PG (28-34); MEAN CORPUSCULAR HGB CONC 33.2 g/dL (30-36); MEAN PLATELET VOLUME 8.8 FL (6.5-11.5); MONOCYTE# 1.9 X10e3 (0-1.0); MONOCYTE% 15.5 % (3.0-12.0); NEUTROPHIL# 9.5 X10e3 (1.5-7.1); NEUTROPHIL% 76.3 % (40-75); PLATELET COUNT 181 X10e3 (140-420); RED BLOOD COUNT 4.12 X10e (3.90-5.60); RED CELL DISTRIBUTION WIDTH 16.4 % (11.0-15.5); WHITE BLOOD COUNT 12.4 X10e3 (4.0-10.5)
[2017-02-28 03:35] LABS: DIFF IND NO
[2017-02-28 03:48] LABS: ARTERIAL BLOOD GAS CARBOXY HB 1.3 %sat (0.0-9.0); ARTERIAL BLOOD GAS HCO3 35.2 mmol/L; ARTERIAL BLOOD GAS MET HB 0.4 %sat (0.0-2.0); ARTERIAL BLOOD GAS pH 7.465 (7.350-7.450)
[2017-02-28 03:50] LABS: ARTERIAL BLOOD GAS ALLEN TEST NORMAL; ARTERIAL BLOOD GAS ART SITE RIGHT RADIAL; ARTERIAL BLOOD GAS DELIVERY VENT; ARTERIAL BLOOD GAS PO2 68.8 mmHg (80.0-100); ARTERIAL BLOOD GAS VENT MODE AC; ARTERIAL DRAW? YES
[2017-02-28 04:07] LABS: ALBUMIN SERUM 3.3 g/dL (3.5-5.0); BUN/CREATININE RATIO 21.66; CALCIUM SERUM 8.8 mg/dL (8.4-10.2); CREATININE SERUM 0.6 mg/dL (0.6-1.4); GLOM FILT RATE Estimated 104.8 mL/min (>60); MAGNESIUM 1.7 mg/dL (1.6-3.0); POTASSIUM 3.2 mmol/L (3.5-5.1); PROTEIN TOTAL SERUM 6.1 g/dL (6.0-8.3)
[2017-02-28 07:27] LABS: LEGIONELLA AG URINE NEG (NEG)
[2017-02-28 09:05] LABS: %MB 2.2 % (0.0-4.0); MB 3.2 ng/ml
[2017-02-28 10:58] LABS: ARTERIAL BLD GAS O2 SATURATION 96.3 % (90.0-100.0); ARTERIAL BLOOD GAS CARBOXY HB 1.2 %sat (0.0-9.0); ARTERIAL BLOOD GAS HCO3 36.1 mmol/L; ARTERIAL BLOOD GAS MET HB 0.5 %sat (0.0-2.0); ARTERIAL BLOOD GAS pH 7.446 (7.350-7.450)
[2017-02-28 10:59] LABS: ARTERIAL BLOOD GAS ALLEN TEST NORMAL; ARTERIAL BLOOD GAS PCO2 52.4 mmHg (35.0-45.0); ARTERIAL DRAW? YES
[2017-02-28 11:00] LABS: ARTERIAL BLOOD GAS ART SITE RIGHT RADIAL; ARTERIAL BLOOD GAS VENT MODE CPAP
[2017-03-01 05:08] LABS: BASOPHIL% 0.4 % (0-2.5); EOSINOPHIL# 0.1 X10e3 (0-0.7); EOSINOPHIL% 0.7 % (0.0-7.0); HEMATOCRIT 35.1 % (38.0-50.0); HEMOGLOBIN 11.4 gm/dL (13.0-16.0); LYMPHOCYTE# 1.1 X10e3 (1.0-3.5); LYMPHOCYTE% 9.5 % (17.0-45.0); MEAN CELL VOLUME 96.4 FL (83-96); MEAN CORPUSCULAR HEMOGLOBIN 31.2 PG (28-34); MEAN CORPUSCULAR HGB CONC 32.4 g/dL (30-36); MEAN PLATELET VOLUME 9.7 FL (6.5-11.5); MONOCYTE% 18.1 % (3.0-12.0); NEUTROPHIL# 8.1 X10e3 (1.5-7.1); NEUTROPHIL% 71.3 % (40-75); PLATELET COUNT 159 X10e3 (140-420); RED BLOOD COUNT 3.64 X10e (3.90-5.60); RED CELL DISTRIBUTION WIDTH 16.3 % (11.0-15.5); WHITE BLOOD COUNT 11.3 X10e3 (4.0-10.5)
[2017-03-01 05:11] LABS: DIFF IND NO
[2017-03-01 07:16] LABS: ALBUMIN SERUM 2.9 g/dL (3.5-5.0); BILIRUBIN,TOTAL 0.7 mg/dL (0.2-2.0); CALCIUM SERUM 8.4 mg/dL (8.4-10.2); CREATININE SERUM 0.4 mg/dL (0.6-1.4); GLOM FILT RATE Estimated 123.8 mL/min (>60); POTASSIUM 3.2 mmol/L (3.5-5.1); PROTEIN TOTAL SERUM 5.6 g/dL (6.0-8.3)
[2017-03-02 08:41] LABS: BUN/CREATININE RATIO 11.42; CALCIUM SERUM 8.1 mg/dL (8.4-10.2); CREATININE SERUM 0.7 mg/dL (0.6-1.4); GLOM FILT RATE Estimated 98.4 mL/min (>60); MAGNESIUM 1.6 mg/dL (1.6-3.0); POTASSIUM 3.4 mmol/L (3.5-5.1)
[2017-03-03 06:29] LABS: BASOPHIL% 0.5 % (0-2.5); EOSINOPHIL# 0.2 X10e3 (0-0.7); EOSINOPHIL% 3.1 % (0.0-7.0); HEMATOCRIT 36.4 % (38.0-50.0); HEMOGLOBIN 12.2 gm/dL (13.0-16.0); LYMPHOCYTE# 0.9 X10e3 (1.0-3.5); LYMPHOCYTE% 13.9 % (17.0-45.0); MEAN CELL VOLUME 96.6 FL (83-96); MEAN CORPUSCULAR HEMOGLOBIN 32.3 PG (28-34); MEAN CORPUSCULAR HGB CONC 33.5 g/dL (30-36); MEAN PLATELET VOLUME 8.4 FL (6.5-11.5); MONOCYTE# 0.9 X10e3 (0-1.0); NEUTROPHIL# 4.6 X10e3 (1.5-7.1); NEUTROPHIL% 69.5 % (40-75); PLATELET COUNT 152 X10e3 (140-420); RED BLOOD COUNT 3.77 X10e (3.90-5.60); RED CELL DISTRIBUTION WIDTH 16.2 % (11.0-15.5); WHITE BLOOD COUNT 6.7 X10e3 (4.0-10.5)
[2017-03-03 06:31] LABS: DIFF IND NO
[2017-03-03 07:12] LABS: CALCIUM SERUM 8.5 mg/dL (8.4-10.2); CREATININE SERUM 0.5 mg/dL (0.6-1.4); MAGNESIUM 1.8 mg/dL (1.6-3.0); POTASSIUM 3.8 mmol/L (3.5-5.1)
== END 2017-03-03 14:45 | DRG 871 ==
LOC: CED 04:46 → CEDOF 10:25 → CICCU3 10:29 → CED 10:29 → CICCU3 13:03 → CEDOF 13:03 → CICCU3 13:03 → C5C 03-02 17:06
PROVIDERS: Emergency Medicine; Family Medicine; Internal Medicine
PROC: 5A1945Z Respiratory Ventilation, 24-96 Consecutive Hours (ICD-10-PCS; principal; 2017-02-27)
PROC: B32TYZZ Computerized Tomography (CT Scan) of Left Pulmonary Artery using Other Contrast (ICD-10-PCS; 2017-02-27)
PROC: B32SYZZ Computerized Tomography (CT Scan) of Right Pulmonary Artery using Other Contrast (ICD-10-PCS; 2017-02-27)
DX: A41.9 Sepsis, unspecified organism (principal); R65.21 Severe sepsis with septic shock; J96.21 Acute and chronic respiratory failure with hypoxia; J18.9 Pneumonia, unspecified organism; I11.0 Hypertensive heart disease with heart failure; R56.9 Unspecified convulsions; I50.32 Chronic diastolic (congestive) heart failure; J96.22 Acute and chronic respiratory failure with hypercapnia; J44.0 Chronic obstructive pulmonary disease with (acute) lower respiratory infection; R04.2 Hemoptysis; R41.82 Altered mental status, unspecified; Y95 Nosocomial condition; F20.9 Schizophrenia, unspecified; F70 Mild intellectual disabilities; G62.9 Polyneuropathy, unspecified; N40.0 Benign prostatic hyperplasia without lower urinary tract symptoms; H91.90 Unspecified hearing loss, unspecified ear; K21.9 Gastro-esophageal reflux disease without esophagitis; Z87.891 Personal history of nicotine dependence; Z80.1 Family history of malignant neoplasm of trachea, bronchus and lung; E87.6 Hypokalemia; G89.29 Other chronic pain; M54.9 Dorsalgia, unspecified; M10.9 Gout, unspecified; F41.9 Anxiety disorder, unspecified
CPT/HCPCS: 36415; 36600; 51702; 70450; 71010; 71275; 74000; 80048; 80053; 80076; 80185; 80202; 80307; 81003; 82140; 82308; 82550; 82553; 82607; 82746; 82803; 82947; 83036; 83605; 83735; 83880; 84132; 84443; 84484; 85025; 85610; 85730; 87040; 87070; 87205; 87449; 87899; 93005; 93970; 94002; 94003; 94640; 94760; 94761; 96361; 96365; 96366; 96375; 99291; C9113; G0480; J1165; J1650; J2250; J2543; J3010; J3370; J3475; J3490; Q9967